=== PATIENT | male | born 1965 | race Caucasian/White ===

== ENCOUNTER 2018-01-01 13:17 | Emergency (ER) | payer SELFPAY ==
[2018-01-01 13:35] VITALS: BP 180/66; PULSE 68; RESP 18; TEMP 36.9; O2SAT 99; BMI 28.2
--- NOTE | 2018-01-01 14:11 | ED_ITS ---
HPI - Wound/Laceration <LISA Erickson Last Filed: 01/01/18 19:11> General Chief Complaint: Wound/Laceration Stated Complaint: CAT BITE ON RT POINTER FINGER, RED LINE GOING UP A Time Seen by Provider: 01/01/18 14:10 Source: patient Mode of arrival: ambulatory Limitations: no limitations History of Present Illness HPI narrative: This 52-year-old male states he was bit by his girlfriend cat 3 or 4 days ago. He states this is an indoor vaccinated cat, and it just got scared after getting up into a tree and he was trying to given a bath. He states that it bit his pointer finger and scratched up his arm. He is not sure about any bites to the forearm. He states that he cleaned it up and thought it was okay, but he has had increasing redness 1st on the finger, now extending up on to the right arm. He states his arm feels sore. His finger is swollen and he can move it other than bending fully due to swelling. He denies any fever, drainage, or other new complaints Related Data Previous Rx's Medication Instructions Recorded amoxicillin-pot clavulanate 1 tab PO Q12H #20 tab 01/01/18 [Augmentin] Allergies Allergy/AdvReac Type Severity Reaction Status Date / Time No Known Drug Allergies Allergy Verified 01/01/18 13:39 Review of Systems <LISA Erickson Last Filed: 01/01/18 19:11> Review of Systems All systems reviewed & are unremarkable except as noted in HPI and below PFSH <LISA Erickson Last Filed: 01/01/18 19:11> Comment: EtOH 2-3 daily Exam <LISA Erickson Last Filed: 01/01/18 19:11> Narrative Exam Narrative: GENERAL APPEARANCE: Patient sitting comfortably, in no distress. LUNGS: Clear to auscultation bilaterally. HEART: Rate and rhythm regular without murmur, normal S1 and S2, no S3 or S4. EXTREMITIES: No cyanosis, upper extremities are warm and pink DERMATOLOGIC: Right pointer finger there are puncture wounds on the pad and dorsum. There is erythema from the PIP distal on the dorsal surface and moderate edema. There are also numerous small scratch or puncture wounds that are scabbed on the dorsal forearm. Starting proximal to the wrist near these there is a streak of erythema extending on the dorsal side of the forearm and curving to the anterior mid bicep. Mildly tender. There is no circumferential erythema MUSCULOSKELETAL: Slightly reduced flexion at the right pointer finger D IP. Strength is intact in all malloy against resistance. He has otherwise full range of motion throughout the right upper extremity including hand, wrist, elbow and shoulder Initial Vital Signs Initial Vital Signs: Vital Signs Temperature 98.5 F 01/01/18 13:35 Pulse Rate 68 01/01/18 13:35 Respiratory Rate 18 01/01/18 13:35 Blood Pressure 180/66 H 01/01/18 13:35 Pulse Oximetry 99 01/01/18 13:35 <David Whitaker DO - Last Filed: 01/01/18 19:12> Initial Vital Signs Initial Vital Signs: Vital Signs Temperature 98.5 F 01/01/18 13:35 Pulse Rate 68 01/01/18 13:35 Respiratory Rate 18 01/01/18 13:35 Blood Pressure 180/66 H 01/01/18 13:35 Pulse Oximetry 99 01/01/18 13:35 Course <Pat Rajput PA-C - Last Filed: 01/01/18 19:11> Vital Signs - 8 hr 01/01/18 13:35 Temperature 98.5 F Pulse Rate 68 Respiratory Rate 18 Blood Pressure 180/66 H Pulse Oximetry 99 <David Whitaker DO - Last Filed: 01/01/18 19:12> Vital Signs - 8 hr 01/01/18 13:35 Temperature 98.5 F Pulse Rate 68 Respiratory Rate 18 Blood Pressure 180/66 H Pulse Oximetry 99 Discharge Plan Departure Patient Disposition: Home Clinical Impression: Cat bite involving extremity, Cellulitis of right upper extremity Discharge Date/Time: 01/01/18 14:40 Interventions: ED Discharge Assessment Last Done: 01/01/18 14:39 Instructions: DI for Cellulitis -- Adult, DI for Cat Bite Activity Restrictions/Additional Instructions: Please return as we talked about if you have acutely worsening redness or pain, or new swelling or fever. (Watch the margins that I have marked for you). It will likely take about 3 days for you to start seeing significant improvement from the antibiotic. Please start those as soon as you pick them up and take the 2nd dose late tonight. Take for the full 10 days. Add to Aleve twice daily since you have that at home. That is equivalent to a prescription anti- inflammatory/pain reliever dose Prescriptions: New amoxicillin-pot clavulanate [Augmentin] 875-125 mg tablet 1 tab PO Q12H Qty: 20 RF: 0 <David Whitaker DO - Last Filed: 01/01/18 19:12> Nicole ED Attending Lara Attestation: I was immediately available in the department for consultation. Documentation has been reviewed. I agree with assessment and plan.
== END 2018-01-01 14:40 | disposition home or self-care (01) ==
PROVIDERS: Emergency Provider Internal Medicine
DX: S61.258A Open bite of other finger without damage to nail, initial encounter (principal); L03.011 Cellulitis of right finger; W55.01XA Bitten by cat, initial encounter
CPT/HCPCS: 99282

== ENCOUNTER 2019-08-05 11:33 | Emergency (ER) | payer OTHER, MEDICAID, SELFPAY ==
[2019-08-05 11:44] VITALS: BP 202/96; PULSE 87; RESP 18; TEMP 36.7; O2SAT 100; BMI 26.6
--- NOTE | 2019-08-05 11:45 | PC.NURSE ---
Pt had surgery a couple of months ago after getting a bone infection after cat scratch. Pts right index finger began swelling and becoming painful again 2 days ago. Pt has extreme swelling on tip right index finger
--- NOTE | 2019-08-05 11:51 | DI.RAD.S_ITS ---
PROCEDURE: XR FINGER RT MIN 2V INDICATIONS: pain/ swelling hx osteo TECHNIQUE: AP hand, 2 views of the right second finger(s) acquired. COMPARISON: [facility], CR, XR FINGER(S) RIGHT, 06/17/2019, 10:37. FINDINGS: Bones: No fractures or dislocations. No suspicious bony lesions. Lucencies in the base of the second distal phalange and the dorsal margin of the head of the second middle phalange are stable. No erosive changes or periosteal reaction. Soft tissues: No suspicious soft tissue calcifications. Soft tissue swelling noted in the distal aspect of the second digit compatible with infectious cellulitis. No soft tissue gas. IMPRESSION: No grupo evidence of osteomyelitis. Plain film radiographs can be insensitive to osteomyelitis during the initial 15 days of the disease process. If there is clinical concern for osteomyelitis, then three-phase nuclear medicine bone scan should be considered for further evaluation. Dictated by: Citlalli Verdin MD, PhD on 08/05/2019 at 12:15 Approved by: Citlalli Verdin MD, PhD on 08/05/2019 at 12:17
--- NOTE | 2019-08-05 12:01 | ED.UPPEXIN ---
HPI - Extremity Injury (Upper) <STEPHEN Pantoja - Last Filed: 08/05/19 15:01> General Chief Complaint: Extremity Injury, Upper Stated Complaint: right hand index finger infection x3 months Time Seen by Provider: 08/05/19 11:49 Source: patient Mode of arrival: Family Vehicle Limitations: no limitations History of Present Illness HPI narrative: The patient is a 53-year-old male current everyday smoker with history of osteomyelitis who presents with a chief complaint of a ?finger infection.He states that he was seen here back in December after being scratched by a cat, started on Augmentin and then his finger got worse so he followed up with Orthopedics at [facility]. He was diagnosed with osteomyelitis at that time. He states he has been off antibiotics for 2 months, but then over the past few days his right index finger has become increasingly red and swollen. He states he can still move it but it hurts a lot. He denies any fevers nausea vomiting or diarrhea. He denies any general malaise. He has an appointment with his orthopedist, Dr. Clifford Calabrese on 08/09/2019, but decided to come to the emergency department get antibiotics and pain medicine before that visit. During my initial interview, the patient adamantly declines any lab work or ?needles as he is sick of being poked.He does not know what antibiotics he was on. Related Data Previous Rx's Medication Instructions Recorded amoxicillin-pot clavulanate 1 tab PO Q12H #20 tab 01/01/18 [Augmentin] amoxicillin-pot clavulanate 1 tab PO BID #20 tab 08/05/19 doxycycline hyclate 100 mg PO BID #20 tab 08/05/19 hydrocodone-acetaminophen 1 tab PO Q4-6H PRN #10 tab 08/05/19 Allergies Allergy/AdvReac Type Severity Reaction Status Date / Time No Known Drug Allergies Allergy Verified 08/05/19 11:54 Review of Systems <STEPHEN Pantoja - Last Filed: 08/05/19 15:01> Review of Systems Narrative: GENERAL: Denies chills, fatigue, malaise, fever, sweats. HEENT: Denies sinus pain, ear pain, sore throat, difficulty swallowing, dizziness. RESPIRATORY: Denies dyspnea, cough, wheezing, hemoptysis, sputum. CARDIOVASCULAR: Denies chest pain, palpitations, orthopnea, edema, GASTROINTESTINAL: Denies nausea, vomiting, abdominal pain, diarrhea, constipation, melena. : Denies dysuria, frequency, incontinence, hematuria, urinary retention. MUSCULOSKELETAL: See HPI SKIN: See HPI NEUROLOGIC: Denies weakness, headache, numbness, change in speech, confusion, seizures, incoordination. PSYCHIATRIC: No concerning psychosocial issues. 12 point review of systems is negative except for those stated above Patient History <STEPHEN Pantoja - Last Filed: 08/05/19 15:01> Medical History Healthy adult male (Chronic) Surgical History H/O hand surgery (Resolved) Social History Smoking Status: Current every day smoker Smoking Status: Current every day smoker alcohol intake frequency: 3 or more drinks per day Substance Use Type: does not use Exam <STEPHEN Pantoja - Last Filed: 08/05/19 15:01> Narrative Exam Narrative: GENERAL: This is a well-nourished, well-developed patient, in no acute distress HEAD: Atraumatic. Normocephalic. No temporal or scalp tenderness. EYES: Pupils equal round and reactive. Extraocular motions intact. No scleral icterus. No injection or drainage. ENT: Nose without bleeding, purulent drainage or septal hematoma. Throat without erythema, tonsillar hypertrophy or exudate. Uvula midline. Airway patent. NECK: Trachea midline. No JVD or lymphadenopathy. Supple, nontender, no meningeal signs. CARDIOVASCULAR: Regular rate and rhythm RESPIRATORY: Clear to auscultation. Breath sounds equal bilaterally. No wheezes, rales, or rhonchi. No cough. No increased respiratory effort. No accessory muscle use. GASTROINTESTINAL: Abdomen soft, non-tender, nondistended. No hepato-splenomegaly, or palpable masses. No guarding. EXTREMITIES: Distal phalanx of right index finger is erythematous, swollen, no overt drainage, no palpable fluctuance or abscess. Capillary refill less than 2 seconds. Patient does have reduced range of motion all malloy for right index finger BACK: Nontender without deformity or crepitance. No flank tenderness. NEURO: AOx3. SKIN: See extremity exam Initial Vital Signs Initial Vital Signs: Vital Signs Temperature 98.0 F 08/05/19 11:44 Pulse Rate 87 08/05/19 11:44 Respiratory Rate 18 08/05/19 11:44 Blood Pressure 202/96 H 08/05/19 11:44 Pulse Oximetry 100 08/05/19 11:44 <Deejay Luciano MD - Last Filed: 08/06/19 07:15> Initial Vital Signs Initial Vital Signs: Vital Signs Temperature 98.0 F 08/05/19 11:44 Pulse Rate 87 08/05/19 11:44 Respiratory Rate 18 08/05/19 11:44 Blood Pressure 202/96 H 08/05/19 11:44 Pulse Oximetry 100 08/05/19 11:44 Course <STEPHEN Pantoja - Last Filed: 08/05/19 15:01> Orders Ordered: ED Orders 08/05/19 11:51 XR finger RT min 2V Stat Vital Signs Vital signs: Vital Signs - 8 hr 08/05/19 11:44 08/05/19 13:12 Temperature 98.0 F Pulse Rate 87 76 Respiratory Rate 18 18 Blood Pressure 202/96 H Blood Pressure [Left Arm] 143/79 H Pulse Oximetry 100 98 <Deejay Luciano MD - Last Filed: 08/06/19 07:15> Orders Ordered: ED Orders 08/05/19 11:51 XR finger RT min 2V Stat Vital Signs Vital signs: Vital Signs - 8 hr 08/05/19 11:44 08/05/19 13:12 Temperature 98.0 F Pulse Rate 87 76 Respiratory Rate 18 18 Blood Pressure 202/96 H Blood Pressure [Left Arm] 143/79 H Pulse Oximetry 100 98 MDM - Extremity Injury (Upper) <STEPHEN Pantoja - Last Filed: 08/05/19 15:01> Imaging Data Extremity x-ray #1: Radiologist's Impression: [facility] [address] [place] [id number] XRay Report Signed Patient: Rajendra Murray [facility]#: [id number] : 1965Acct:[id number] Age/Sex: 53 / MDate of Service: 08/05/19 Loc: ED Accession Number: [id number] Procedure: XR finger RT min 2V Ordering Provider: Ivania Horowitz PROCEDURE: XR FINGER RT MIN 2V INDICATIONS: pain/ swelling hx osteo TECHNIQUE: AP hand, 2 views of the right second finger(s) acquired. COMPARISON: [facility], CR, XR FINGER(S) RIGHT, 06/17/2019, 10:37. FINDINGS: Bones: No fractures or dislocations. No suspicious bony lesions. Lucencies in the base of the second distal phalange and the dorsal margin of the head of the second middle phalange are stable. No erosive changes or periosteal reaction. Soft tissues: No suspicious soft tissue calcifications. Soft tissue swelling noted in the distal aspect of the second digit compatible with infectious cellulitis. No soft tissue gas. IMPRESSION: No grupo evidence of osteomyelitis. Plain film radiographs can be insensitive to osteomyelitis during the initial 15 days of the disease process. If there is clinical concern for osteomyelitis, then three-phase nuclear medicine bone scan should be considered for further evaluation. Dictated by: Citlalli Verdin MD, PhD on 08/05/2019 at 12:15 Approved by: Citlalli Verdin MD, PhD on 08/05/2019 at 12:17 [facility] Narrative Medical decision making narrative: The patient is a 53-year-old male who presents with a chief complaint of finger infection after recent course of antibiotics for osteomyelitis. The patient repeatedly declined lab work as well as IV. He allowed x-ray to be done. I spoke with a Adilia Abbasi from orthopedics Orthopedics as well as Infectious Disease from [facility], who suggested a course of linezolid or doxycycline as well as a course of Augmentin. Infectious disease requested that the patient do lab work, which the patient again repeatedly declined. I discussed that this was requested by the infectious disease specialist and the patient again declined. I did place the patient on doxycycline as well as Augmentin as the patient states finances are a concern and as per Infectious Disease doxy could be sub for linezolid. I discussed at length the importance of following up with his orthopedist as well as Infectious Disease. Discussed monitor for signs of worsening including extending redness, decreased range of motion etcetera. Patient has no questions or concerns upon discharge and states understanding return precautions as well as follow-up care. Discharge Plan Departure Patient Disposition: Home Clinical Impression: Finger infection Discharge Date/Time: 08/05/19 14:08 Instructions: DI for Cellulitis -- Adult, DI for Osteomyelitis Activity Restrictions/Additional Instructions: I thank you for trusting us with your care today As I discussed, I spoke with both Orthopedics and Infectious Disease. You have repeatedly declined the lab work requested by infectious disease. I have sent two antibiotic prescriptions to [facility]. I also sent a prescription of pain medicine to [facility]. As discussed, please follow-up with orthopedics as well as Infectious Disease. Please monitor for signs of worsening such as extending redness, fever etcetera Please come back to emergency department for any acute concerns I have given you a prescription of a narcotic for pain. Be aware that this can be constipating and sedating. I encouraged taking with a stool softener, pushing fluids and fiber. Do not take and drive, operate heavy machinery, etc. Do not combine it with any other sedating substances such as alcohol. The combination of narcotics and alcohol and/or other sedatives can be lethal. \ Prescriptions: New hydrocodone-acetaminophen 5-325 mg tablet 1 tab PO Q4-6H PRN (Reason: pain) Qty: 10 RF: 0 doxycycline hyclate 100 mg tablet 100 mg PO BID Qty: 20 RF: 0 amoxicillin-pot clavulanate 875-125 mg tablet 1 tab PO BID Qty: 20 RF: 0 No Action amoxicillin-pot clavulanate [Augmentin] 875-125 mg tablet 1 tab PO Q12H Qty: 20 RF: 0 Referrals: Brittny Delgadillo MD [Non-Staff] - Clifford Calabrese DO [Primary Care Provider] -
[2019-08-05 13:12] VITALS: BP 143/79; PULSE 76; RESP 18; O2SAT 98
== END 2019-08-05 14:08 | disposition home or self-care (01) ==
PROVIDERS: Emergency Provider Nurse Practitioner Family; PCP Orthopaedic Surgery
DX: L08.9 Local infection of the skin and subcutaneous tissue, unspecified (principal)
CPT/HCPCS: 73140; 99283

== ENCOUNTER → 2019-08-15 15:47 | Outpatient (ROUT) | payer OTHER, MEDICAID, SELFPAY ==
[2019-08-15 16:14] LABS: Add Manual Diff / Slide Review NO; Basophils Absolute Auto 100 /uL (0-100); Eosinophils Absolute Auto 100 /uL (0-450); Hematocrit 41.5 % (41-53); Hemoglobin 14.1 g/dL (13.5-17.5); Lymphocytes Absolute Auto 2100 /uL (1100-4500); Lymphocytes Percent Auto 29.6 % (25-40); Mean Corpuscular Hemoglobin 35.7 PG (26-34); Monocytes Absolute Auto 600 /uL (0-900); Monocytes Percent Auto 8.1 % (3-14); Neutrophils Absolute Auto 4300 /uL (1500-7000); Neutrophils Percent Auto 60.3 % (50-75); Platelet Count 114 X10^3/uL (150-400); Red Blood Cell Count 3.96 X10^6/uL (4.5-5.9); Red Cell Distribution Width 14.3 % (11.6-14.8); White Blood Cell Count 7.1 X10^3/uL (4.5-11.0)
[2019-08-15 16:23] LABS: Alanine Aminotransferase 220 IU/L (<50); Albumin 4.3 g/dL (3.5-5.0); Albumin Globulin Ratio 1.2 (1.0-2.8); Alkaline Phosphatase 202 U/L (38-126); Aspartate Aminotransferase 487 IU/L (17-59); BUN Creatinine Ratio 13.8 (6-22); Bilirubin Total 0.5 mg/dL (0.2-1.3); Blood Urea Nitrogen 9 mg/dL (9-20); C-Reactive Protein Quant 0.9 mg/dL (<1.0); Carbon Dioxide 26 mmol/L (22-32); Chloride 103 mmol/L (98-107); Estimated Glomerular Filt Rate > 60.0 mL/min (>60); Globulin 3.7 g/dL (1.7-4.1); Glucose 102 mg/dL (70-100); HEMOLYSIS < 15 (0-50); Potassium 4.5 mmol/L (3.4-5.1); Sodium 138 mmol/L (137-145)
== END ==
PROVIDERS: PCP Orthopaedic Surgery
DX: M86.9 Osteomyelitis, unspecified (principal); B96.89 Other specified bacterial agents as the cause of diseases classified elsewhere
CPT/HCPCS: 80053; 85025; 86140

== ENCOUNTER → 2019-09-19 13:12 | Outpatient (ROUT) | payer OTHER, MEDICAID, SELFPAY ==
[2019-09-19 13:24] LABS: Add Manual Diff / Slide Review NO; Basophils Absolute Auto 100 /uL (0-100); Eosinophils Absolute Auto 100 /uL (0-450); Eosinophils Percent Auto 1.1 % (2-4); Hemoglobin 14.7 g/dL (13.5-17.5); Lymphocytes Absolute Auto 1400 /uL (1100-4500); Lymphocytes Percent Auto 25.7 % (25-40); Mean Corpuscular HGB Conc 34.1 % (30-36); Mean Corpuscular Hemoglobin 35.1 PG (26-34); Mean Corpuscular Volume 102.8 fL (80-100); Monocytes Absolute Auto 400 /uL (0-900); Monocytes Percent Auto 7.7 % (3-14); Neutrophils Absolute Auto 3500 /uL (1500-7000); Neutrophils Percent Auto 64.5 % (50-75); Platelet Count 97 X10^3/uL (150-400); Red Blood Cell Count 4.18 X10^6/uL (4.5-5.9); Red Cell Distribution Width 12.7 % (11.6-14.8); White Blood Cell Count 5.4 X10^3/uL (4.5-11.0)
[2019-09-19 13:53] LABS: Alanine Aminotransferase 29 IU/L (<50); Albumin 4.3 g/dL (3.5-5.0); Albumin Globulin Ratio 1.2 (1.0-2.8); Alkaline Phosphatase 121 U/L (38-126); Aspartate Aminotransferase 63 IU/L (17-59); BUN Creatinine Ratio 16.4 (6-22); Bilirubin Total 0.8 mg/dL (0.2-1.3); Blood Urea Nitrogen 11 mg/dL (9-20); Calcium 9.5 mg/dL (8.4-10.2); Carbon Dioxide 24 mmol/L (22-32); Chloride 102 mmol/L (98-107); Estimated Glomerular Filt Rate > 60.0 mL/min (>60); Globulin 3.6 g/dL (1.7-4.1); Glucose 96 mg/dL (70-100); HEMOLYSIS < 15 (0-50); Potassium 4.2 mmol/L (3.4-5.1); Sodium 137 mmol/L (137-145); Total Protein 7.9 g/dL (6.3-8.2)
[2019-09-19 13:56] LABS: C-Reactive Protein Quant < 0.5 mg/dL (<1.0)
== END ==
PROVIDERS: PCP Orthopaedic Surgery; Visit Provider Internal Medicine Infectious Disease
DX: M86.9 Osteomyelitis, unspecified (principal); B96.89 Other specified bacterial agents as the cause of diseases classified elsewhere; M86.141 Other acute osteomyelitis, right hand
CPT/HCPCS: 80053; 85025; 86140

== ENCOUNTER 2021-12-03 12:26 | Emergency (ER) | payer OTHER, MEDICAID, SELFPAY ==
[2021-12-03 12:48] VITALS: PULSE 74; RESP 18; TEMP 37.1; O2SAT 100; BMI 27.7
[2021-12-03 13:22] LABS: Add Manual Diff / Slide Review NO; Basophils Absolute Auto 100 /uL (0-100); Basophils Percent Auto 0.8 % (0-2); Eosinophils Absolute Auto 100 /uL (0-450); Eosinophils Percent Auto 1.2 % (2-4); Hematocrit 39.9 % (41-53); Hemoglobin 13.5 g/dL (13.5-17.5); Lymphocytes Absolute Auto 1500 /uL (1100-4500); Lymphocytes Percent Auto 20.8 % (25-40); Mean Corpuscular HGB Conc 33.9 % (30-36); Mean Corpuscular Hemoglobin 34.9 PG (26-34); Mean Corpuscular Volume 102.8 fL (80-100); Monocytes Absolute Auto 500 /uL (0-900); Monocytes Percent Auto 6.7 % (3-14); Neutrophils Absolute Auto 5200 /uL (1500-7000); Neutrophils Percent Auto 70.5 % (50-75); Platelet Count 144 X10^3/uL (150-400); Red Blood Cell Count 3.88 X10^6/uL (4.5-5.9); Red Cell Distribution Width 13.5 % (11.6-14.8); White Blood Cell Count 7.3 X10^3/uL (4.5-11.0)
[2021-12-03 13:34] LABS: Lactate (Lactic Acid) 1.5 mmol/L (0.7-2.1)
[2021-12-03 13:35] LABS: Alanine Aminotransferase 23 IU/L (<50); Albumin 4.4 g/dL (3.5-5.0); Albumin Globulin Ratio 1.2 (1.0-2.8); Alkaline Phosphatase 79 U/L (38-126); Aspartate Aminotransferase 47 IU/L (17-59); BUN Creatinine Ratio 10.6 (6-22); Bilirubin Total 0.4 mg/dL (0.2-1.3); Blood Urea Nitrogen 7 mg/dL (9-20); Calcium 8.8 mg/dL (8.4-10.2); Carbon Dioxide 22 mmol/L (22-32); Chloride 105 mmol/L (98-107); Estimated Glomerular Filt Rate > 60 mL/min (>60); Globulin 3.8 g/dL (1.7-4.1); Glucose 93 mg/dL (70-100); HEMOLYSIS < 15 (0-50); Potassium 4.2 mmol/L (3.4-5.1); Sodium 140 mmol/L (137-145); Total Protein 8.2 g/dL (6.3-8.2); Uric Acid 6.5 mg/dL (3.5-8.5)
== END 2021-12-03 15:58 | disposition left against medical advice (07) ==
PROVIDERS: Emergency Provider Emergency Medicine; PCP Orthopaedic Surgery
DX: L08.9 Local infection of the skin and subcutaneous tissue, unspecified (principal)
CPT/HCPCS: 80053; 83605; 84550; 85025; 99281

== ENCOUNTER 2022-09-04 13:34 | Emergency (ER) | payer OTHER, MEDICAID, SELFPAY ==
[2022-09-04 13:36] VITALS: BP 110/75; PULSE 79; RESP 16; TEMP 36.4; O2SAT 100; BMI 26.9
[2022-09-04 14:02] LABS: Appearance Urine UA CLOUDY; Bilirubin Urine UA NEGATIVE (NEGATIVE); Color Urine UA RED; Glucose Urine UA NEGATIVE (Negative); Ketones Urine UA TRACE (NEGATIVE); Leukocyte Esterase Urine UA TRACE (NEGATIVE); Nitrite Urine UA NEGATIVE (Negative); Occult Blood Urine UA 3+ (Negative); Protein Urine UA 3+ (Negative); pH Urine UA >= 9.0 (4.5-8.0)
[2022-09-04 14:04] LABS: Bacteria Urine None Seen; Culture Indicated Urine Specimen Cultured; RBC Urine >100/HPF (0-5/HPF); Squamous Epithelial Cell Urine 0-1 /HPF (0-5/HPF); WBC Urine 0-1/HPF (0-5/HPF)
[2022-09-04 14:14] VITALS: BP 101/63; PULSE 79; RESP 14; TEMP 36.6; O2SAT 100
--- NOTE | 2022-09-04 14:20 | DI.CT.S_ITS ---
PROCEDURE: CT ABDOMEN PELVIS W CON INDICATIONS: hematuria, flank pain TECHNIQUE: After the administration of IV contrast, axial sections were acquired from the lung bases to the pubic symphysis. Coronal and sagittal reformats were performed. For radiation dose reduction, the following was used: automated exposure control, adjustment of mA and/or kV according to patient size. COMPARISON: None. FINDINGS: Image quality: Excellent. Lung bases: Unremarkable. Heart: No significant findings. ABDOMEN: Liver: Unremarkable. Gallbladder: Unremarkable. Biliary ducts: Unremarkable. Pancreas: Unremarkable. Spleen: Unremarkable. Adrenal Glands: Unremarkable. Kidneys and Ureters: Unremarkable. Stomach and Bowel: Stomach, small bowel loops, and colon are unremarkable. Peritoneum: No abnormal intraperitoneal fluid. No free air. Ventral Wall: No hernia. Abdominal Nodes: No retroperitoneal or mesenteric adenopathy by size criteria. Vessels: Aorta and inferior vena cava are normal in size. PELVIS: Pelvic Organs: Unremarkable. Bladder: The bladder is significantly distended measuring 15.2 x 21.1 cm. No visualized source of obstruction. Pelvic Nodes: No enlarged lymph nodes. Miscellaneous: No inguinal hernias are seen. Bones: Unremarkable. IMPRESSION: Markedly distended bladder without visualized source of obstruction. No ureteral or renal obstruction. Dictated by: Thea Christie M.D. on 09/04/2022 at 15:48 Approved by: Thea Christie M.D. on 09/04/2022 at 15:50
[2022-09-04 14:36] LABS: Add Manual Diff / Slide Review NO; Basophils Absolute Auto 100 /uL (0-100); Basophils Percent Auto 0.8 % (0-2); Eosinophils Absolute Auto 100 /uL (0-450); Eosinophils Percent Auto 1.6 % (2-4); Hematocrit 42.6 % (41-53); Hemoglobin 14.7 g/dL (13.5-17.5); Lymphocytes Absolute Auto 1600 /uL (1100-4500); Mean Corpuscular HGB Conc 34.5 % (30-36); Mean Corpuscular Hemoglobin 33.5 PG (26-34); Mean Corpuscular Volume 97.2 fL (80-100); Monocytes Absolute Auto 400 /uL (0-900); Monocytes Percent Auto 5.5 % (3-14); Neutrophils Absolute Auto 5200 /uL (1500-7000); Neutrophils Percent Auto 70.1 % (50-75); Platelet Count 137 X10^3/uL (150-400); Red Blood Cell Count 4.39 X10^6/uL (4.5-5.9); Red Cell Distribution Width 12.6 % (11.6-14.8); White Blood Cell Count 7.3 X10^3/uL (4.5-11.0)
[2022-09-04 14:48] LABS: Alanine Aminotransferase 26 IU/L (<50); Albumin 4.5 g/dL (3.5-5.0); Albumin Globulin Ratio 1.2 (1.0-2.8); Alkaline Phosphatase 67 U/L (38-126); Aspartate Aminotransferase 39 IU/L (17-59); BUN Creatinine Ratio 28.9 (6-22); Bilirubin Total 0.5 mg/dL (0.2-1.3); Blood Urea Nitrogen 26 mg/dL (9-20); Calcium 9.8 mg/dL (8.4-10.2); Carbon Dioxide 21 mmol/L (22-32); Chloride 106 mmol/L (98-107); Estimated Glomerular Filt Rate > 60 mL/min (>60); Globulin 3.8 g/dL (1.7-4.1); Glucose 114 mg/dL (70-100); HEMOLYSIS < 15 (0-50); Lipase 62 U/L (23-300); Potassium 3.7 mmol/L (3.4-5.1); Sodium 141 mmol/L (137-145); Total Protein 8.3 g/dL (6.3-8.2)
--- NOTE | 2022-09-04 14:49 | ED.MALEGU ---
HPI - Male Genitourinary General Chief complaint: Urogenital-Male Stated complaint: blood in urine T-14 Time Seen by Provider: 09/04/22 14:08 Source: patient Mode of arrival: Ambulatory History of Present Illness HPI Narrative: 56-year-old male with no reported past medical history presents to the ED with 2 weeks of dysuria, hematuria. Patient also complains of left-sided flank pain, nausea, vomiting. Patient denies fever, chills, chest pain, shortness of breath, abdominal pain, constipation, lightheadedness, dizziness, syncope. Patient does not have a history of nephrolithiasis. Patient states that he has been restricting his fluid intake given the dysuria. Related Data Previous Rx's Medication Instructions Recorded amoxicillin 875 mg-potassium 1 tab PO Q12H cellulitis #20 tabs 01/01/18 clavulanate 125 mg tablet (Augmentin) amoxicillin 875 mg-potassium 1 tab PO BID #20 tabs 08/05/19 clavulanate 125 mg tablet doxycycline hyclate 100 mg tablet 100 mg PO BID #20 tabs 08/05/19 hydrocodone 5 mg-acetaminophen 325 1 tab PO Q4-6H PRN pain #10 tabs 08/04/ mg tablet cefpodoxime 200 mg tablet 200 mg PO Q12H 10 days #20 tabs 09/04/22 phenazopyridine 200 mg tablet 200 mg PO TID PRN pain 3 days #10 09/04/22 tabs Allergies Allergy/AdvReac Type Severity Reaction Status Date / Time No Known Drug Allergies Allergy Verified 09/04/22 13:40 Review of Systems Review of Systems ROS Unobtainable: All systems reviewed & are unremarkable except as noted in HPI and below Constitutional Constitutional: Denies chills, Denies fatigue, Denies fever(s), Denies frequent falls, Denies lethargy and Denies weakness Eyes Eyes: Denies change in vision, Denies eye discharge, Denies irritation and Denies loss of vision ENT Ears, Nose, Mouth, and Throat: Denies change in voice, Denies dizziness, Denies neck pain, Denies sore throat and Denies throat swelling Cardiovascular Cardiovascular: Denies chest pain, Denies irregular heart rhythm, Denies lightheadedness, Denies palpitations, Denies dyspnea, Denies dyspnea on exertion and Denies orthopnea Respiratory Respiratory: Denies cough, Denies dyspnea, Denies dyspnea on exertion and Denies wheezing Gastrointestinal Gastrointestinal: Denies abdominal pain, Denies change in bowel habits, Denies diarrhea, Reports nausea and Reports vomiting Genitourinary Genitourinary: Denies hematuria, Reports dysuria, Denies flank pain, Denies urinary incontinence and Denies urinary urgency Comments: Left-sided flank pain Musculoskeletal Musculoskeletal: Denies back pain, Denies muscle weakness, Denies neck pain, Denies numbness and Denies tingling Integumentary/Breasts Skin/Breast: Denies pruritus, Denies erythema, Denies rash and Denies wounds Neurologic Neurologic: Denies behavioral changes, Denies confusion, Denies dizziness, Denies frequent falls, Denies loss of vision, Denies numbness, Denies tingling and Denies weakness Psychiatric Psychiatric: Denies anxiety, Denies behavioral changes, Denies confusion, Denies depression, Denies homicidal ideation and Denies suicidal ideation Endocrine Endocrine: Denies fatigue, Denies flushing and Denies palpitations Hematologic/Lymphatic Hematologic/Lymphatic: Denies easy bruising Allergic/Immunologic Allergic/Immunologic: Denies urticaria, Denies throat swelling and Denies wheezing Patient History Medical History (Updated 09/04/22 @ 17:35 by Mekhi Jackson PA-C) Healthy adult male Surgical History H/O hand surgery Social History Smoking Status: Current every day smoker Smoking Status: Current every day smoker alcohol intake frequency: 0-2 drinks per day Alcohol type: beer Substance Use Type: does not use Exam Narrative Exam Narrative: Const General:?cooperative, healthy appearing and comfortable [facility] Head:?normal to inspection Ears:?hearing grossly normal bilaterally Nose:?external nose normal Face and sinus:?normal facial exam and sinuses nontender Mouth:?oral mucosae normal Throat:?posterior oropharynx normal Eyes General:?appearance normal, both eyes and all related structures Neck Neck:?normal visual inspection and no lymphadenopathy noted Resp Effort & Inspection:?normal respiratory effort Auscultation:?clear to auscultation bilaterally Cardio Rate:?regular rate Rhythm:?regular rhythm GI Abdomen is soft, slightly distended. Abdomen is not tender to palpation. There is no CVA tenderness. Neuro General:?patient alert, patient awake and patient oriented x3 Initial Vital Signs Initial Vital Signs: Vital Signs Temperature 97.6 F 09/04/22 13:36 Pulse Rate 79 09/04/22 13:36 Respiratory Rate 16 09/04/22 13:36 Blood Pressure 110/75 09/04/22 13:36 Pulse Oximetry 100 09/04/22 13:36 Oxygen Delivery Method Room Air 09/04/22 13:36 Course Orders Ordered: ED Orders 09/04/22 13:46 Chlamydia Gonorrhea PCR -URINE Stat Urinalysis and Microscopic Stat Urine Culture Stat 09/04/22 14:20 CT abdomen pelvis w con Stat 09/04/22 14:25 CBC Auto Diff [Complete Blood Count AUTO DIFF] Stat CMP [Comprehensive Metabolic Panel] Stat Lipase Stat Discontinued Medications Phenazopyridine HCl (Phenazopyridine 100 Mg Tablet) 200 mg PO NOW ONE Stop: 09/04/22 17:26 Last Admin: 09/04/22 17:36 Dose: 200 mg Documented By: OLIVIA Vital Signs Vital signs: Vital Signs - 8 hr 09/04/22 13:36 09/04/22 14:14 09/04/22 17:45 Temperature 97.6 F 97.9 F Pulse Rate 79 79 73 Respiratory Rate 16 14 14 Blood Pressure 110/75 101/63 111/64 Pulse Oximetry 100 100 100 Oxygen Delivery Method Room Air Room Air Room Air MDM - Male Genitourinary Lab Data 09/04/22 14:25 09/04/22 14:25 Labs: Lab Results 09/04/22 09/04/22 09/04/22 Range/Units 13:46 13:46 14:25 WBC 7.3 (4.5-11.0) X10^3/uL RBC 4.39 L (4.5-5.9) X10^6/uL Hgb 14.7 (13.5-17.5) g/dL Hct 42.6 (41-53) % MCV 97.2 (80-100) fL MCH 33.5 (26-34) PG MCHC 34.5 (30-36) % RDW 12.6 (11.6-14.8) % Plt Count 137 L (150-400) X10^3/uL Neut % (Auto) 70.1 (50-75) % Lymph % (Auto) 22.0 L (25-40) % [place] % (Auto) 5.5 (3-14) % Eos % (Auto) 1.6 L (2-4) % Baso % (Auto) 0.8 (0-2) % Neut # (Auto) 5200 (5626-4662) /uL Lymph # (Auto) 1600 (6050-9031) /uL [place] # (Auto) 400 (0-900) /uL Eos # (Auto) 100 (0-450) /uL Baso # (Auto) 100 (0-100) /uL Sodium (137-145) mmol/L Potassium (3.4-5.1) mmol/L Chloride (98-107) mmol/L Carbon Dioxide (22-32) mmol/L BUN (9-20) mg/dL Creatinine (0.66-1.25) mg/dL Estimated GFR (>60) mL/min BUN/Creatinine Ratio (6-22) Glucose (70-100) mg/dL Calcium (8.4-10.2) mg/dL Total Bilirubin (0.2-1.3) mg/dL AST (17-59) IU/L ALT (<50) IU/L Alkaline Phosphatase (38-126) U/L Total Protein (6.3-8.2) g/dL Albumin (3.5-5.0) g/dL Globulin (1.7-4.1) g/dL Albumin/Globulin Ratio (1.0-2.8) Lipase (23-300) U/L Urine Color Red Urine Appearance Cloudy Urine pH >= 9.0 H (4.5-8.0) Ur Specific [place] 1.010 (1.000-1.035) Urine Protein 3+ H (Negative) Urine Glucose (UA) Negative (Negative) g/dL Urine Ketones Trace H (NEGATIVE) Urine Occult Blood 3+ H (Negative) Urine Nitrate Negative (Negative) Urine Bilirubin Negative (NEGATIVE) Urine Urobilinogen 2.0 H (0.2) E.U./dL Ur Leukocyte Esterase Trace H (NEGATIVE) Urine RBC >100/hpf H (0-5/HPF) Urine WBC 0-1/hpf (0-5/HPF) Ur Squamous Epith Cells 0-1 /hpf (0-5/HPF) Urine Bacteria None seen (None) Ur Culture Indicated? Specimen cultured Ur Chlamydia DNA (PCR) Not detected N gonorrhoeae DNA (PCR) Not detected 09/04/22 Range/Units 14:25 WBC (4.5-11.0) X10^3/uL RBC (4.5-5.9) X10^6/uL Hgb (13.5-17.5) g/dL Hct (41-53) % MCV (80-100) fL MCH (26-34) PG MCHC (30-36) % RDW (11.6-14.8) % Plt Count (150-400) X10^3/uL Neut % (Auto) (50-75) % Lymph % (Auto) (25-40) % [place] % (Auto) (3-14) % Eos % (Auto) (2-4) % Baso % (Auto) (0-2) % Neut # (Auto) (2859-6328) /uL Lymph # (Auto) (1242-9431) /uL [place] # (Auto) (0-900) /uL Eos # (Auto) (0-450) /uL Baso # (Auto) (0-100) /uL Sodium 141 (137-145) mmol/L Potassium 3.7 (3.4-5.1) mmol/L Chloride 106 (98-107) mmol/L Carbon Dioxide 21 L (22-32) mmol/L BUN 26 H (9-20) mg/dL Creatinine 0.90 (0.66-1.25) mg/dL Estimated GFR > 60 (>60) mL/min BUN/Creatinine Ratio 28.9 H (6-22) Glucose 114 H (70-100) mg/dL Calcium 9.8 (8.4-10.2) mg/dL Total Bilirubin 0.5 (0.2-1.3) mg/dL AST 39 (17-59) IU/L ALT 26 (<50) IU/L Alkaline Phosphatase 67 (38-126) U/L Total Protein 8.3 H (6.3-8.2) g/dL Albumin 4.5 (3.5-5.0) g/dL Globulin 3.8 (1.7-4.1) g/dL Albumin/Globulin Ratio 1.2 (1.0-2.8) Lipase 62 (23-300) U/L Urine Color Urine Appearance Urine pH (4.5-8.0) Ur Specific [place] (1.000-1.035) Urine Protein (Negative) Urine Glucose (UA) (Negative) g/dL Urine Ketones (NEGATIVE) Urine Occult Blood (Negative) Urine Nitrate (Negative) Urine Bilirubin (NEGATIVE) Urine Urobilinogen (0.2) E.U./dL Ur Leukocyte Esterase (NEGATIVE) Urine RBC (0-5/HPF) Urine WBC (0-5/HPF) Ur Squamous Epith Cells (0-5/HPF) Urine Bacteria (None) Ur Culture Indicated? Ur Chlamydia DNA (PCR) N gonorrhoeae DNA (PCR) MDM Narrative Medical decision making narrative: 56-year-old male with no reported past medical history presents to the ED with 2 weeks of dysuria, hematuria. Concern for UTI versus pyelonephritis versus GC versus nephrolithiasis versus other intra-abdominal pathology versus other. Will obtain labs, UA, lipase, CT abdomen pelvis. UA is positive for occult blood, urine RBCs. Trace leukocyte esterase. The CT abdomen pelvis shows markedly distended bladder without visualized source of obstruction. The bladder is significantly distended measuring 15.2 x 21.1 cm. No ureteral or renal obstruction. Discussed findings with patient. Patient attempted to urinate after the CT, was only able to urinate a small amount. Discussed getting patient set up with a Mccoy catheter until he could follow-up with urology. Patient declined the Mccoy catheter, verbalized understanding of the risks of not getting a Mccoy catheter in today. Patient is amenable to starting antibiotics for the UTI and following up with Urology as soon as possible. Recommend azo for symptom control. ED return precautions discussed with patient. Patient verbalized understanding. Medical records reviewed: Yes Discharge Plan Departure Patient Disposition: Home Clinical Impression: Urinary tract infection, Urinary retention Instructions: DI for Urinary Tract Infection (UTI), DI for Urinary Retention in Men Activity Restrictions/Additional Instructions: You were evaluated in the ED today for painful urination. It appears that you have a urinary tract infection. You are being treated with antibiotics. You were also being prescribed phenazopyridine for the discomfort. The CT of your abdomen did show that you have a markedly distended bladder, which is resulting in you retaining urine, which is likely the reason for the urinary tract infection. It is recommended when you have urinary retention that a Mccoy catheter be applied to continue to drain the urine, however you declined the Mccoy catheter today. It is important that you follow-up with urology at [phone] for further evaluation. Please return to the ED if you are unable to urinate, you have worsening symptoms, fevers, chills. Prescriptions: New cefpodoxime 200 mg tablet 200 mg PO Q12H 10 Days Qty: 20 0RF Rx Instructions: must administer with a meal/food phenazopyridine 200 mg tablet 200 mg PO TID PRN (Reason: pain) 3 Days Qty: 10 0RF No Action amoxicillin-pot clavulanate [Augmentin] 875-125 mg tablet 1 tab PO Q12H Qty: 20 0RF hydrocodone-acetaminophen 5-325 mg tablet 1 tab PO Q4-6H PRN (Reason: pain) Qty: 10 0RF doxycycline hyclate 100 mg tablet 100 mg PO BID Qty: 20 0RF amoxicillin-pot clavulanate 875-125 mg tablet 1 tab PO BID Qty: 20 0RF Referrals: Clifford Calabrese DO [Primary Care Provider] - Stand Alone Forms: Patient Portal/API
[2022-09-04 15:20] LABS: Urine N gonorrhoeae NOT DETECTED
[2022-09-04 15:30] LABS: Urine Chlamydia NOT DETECTED
[2022-09-04] MEDS: PHENAZOPYRIDINE 100 MG TABLET 200 MG PO (17:36)
[2022-09-04 17:45] VITALS: BP 111/64; PULSE 73; RESP 14; O2SAT 100
== END 2022-09-04 17:47 | disposition home or self-care (01) ==
PROVIDERS: Emergency Provider Student in an Organized Health Care Education/Training Program; PCP Orthopaedic Surgery
DX: N39.0 Urinary tract infection, site not specified (principal); R33.8 Other retention of urine; R10.9 Unspecified abdominal pain
CPT/HCPCS: 36415; 74177; 80053; 81001; 83690; 85025; 87077; 87086; 87491; 87591; 99283; 99284; Q9967